=== PATIENT | male | born 1980 | race Caucasian/White ===

== ENCOUNTER 2018-08-17 18:23 | Emergency (ER) | payer SELFPAY ==
[~2018-08-17] VITALS: Ht 182.9 cm; Wt 79.4 kg
[2018-08-17 18:35] VITALS: BP 143/84
--- NOTE | 2018-08-17 18:41 | NUR ---
PT AMBULATES TO [facility] W/ STEADY GAIT AND VSS TO WAIT FOR AN AVAILABLE BED
--- NOTE | 2018-08-17 18:55 | NUR ---
PATIENT AMBULATED TO ER BED 3.
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
[2018-08-17] MEDS ORDERED: MECLIZINE 25 MG TAB PO ONE (19:30)
[2018-08-17] MEDS ORDERED: ONDANSETRON 4 MG ODT PO ONE (19:30)
[2018-08-17 19:51] LABS: BASOPHILS % (AUTO) 0.6 % (0.0-2.0); EOSINOPHILS # (AUTO) 0.1 K/uL (0-0.4); EOSINOPHILS % (AUTO) 1.4 % (0.0-4.0); HEMATOCRIT 43.6 % (36-52); LYMPHOCYTES # (AUTO) 2.2 K/uL (2.0-11.5); LYMPHOCYTES % (AUTO) 32.2 % (20.5-51.1); MEAN CORPUSCULAR HEMOGLOBIN 31 pg (27-31); MEAN CORPUSCULAR HGB CONC 34 g/dL (33-37); MEAN CORPUSCULAR VOLUME 91.3 fL (80-94); MONOCYTES # (AUTO) 0.5 K/uL (0.8-1.0); MONOCYTES % (AUTO) 7.4 % (1.7-9.3); NEUTROPHILS # (AUTO) 3.9 K/uL (1.8-7.7); NEUTROPHILS % (AUTO) 58.4 % (42.2-75.2); PLATELET COUNT (AUTO) 257 K/uL (140-450); RED BLOOD CELL COUNT(AUTO) 4.78 MIL/uL (4.20-6.10); RED CELL DISTRIBUTION WIDTH 12.5 % (11.6-13.7); WHITE BLOOD COUNT (AUTO) 6.8 K/uL (4.8-10.8)
--- NOTE | 2018-08-17 20:14 | NUR ---
PT GOING TO CT
[2018-08-17 20:37] LABS: ALBUMIN 3.7 g/dL (3.4-5.0); CARBON DIOXIDE 30.9 mmol/L (21-32); TOTAL BILIRUBIN 0.5 mg/dL (0.0-1.0)
[2018-08-17 20:42] LABS: CREATINE KINASE MB 0.5 ng/mL (0-3.6)
[2018-08-17 21:06] LABS: ANION GAP 9.3 (8-16); POTASSIUM 4.2 mmol/L (3.5-5.1)
--- NOTE | 2018-08-17 21:21 | NUR ---
Dr. Valle evaluating patient at bedside.
--- NOTE | 2018-08-17 21:56 | NUR ---
PT SITTING UP IN BED, VITALS STABLE.
[2018-08-17 22:12] LABS: BARBITURATE, URINE NEG. ng/ml (NEG <=200); BENZODIAZEPINE, URINE NEG. ng/mL (NEG <=200); CANNABINOID, URINE NEG. ng/mL (NEG <=50); COCAINE, URINE NEG. ng/mL (NEG <=300); OPIATE, URINE NEG. ng/mL (NEG <=2000); PHENCYCLIDINE SCREEN,URINE NEG. ng/mL (NEG <=25)
[2018-08-18] VITALS: BP 116/75
--- NOTE | 2018-08-18 00:02 | NUR ---
Patient discharged with v/s stable. Written and verbal after care instructions given and explained. Patient alert, oriented and verbalized understanding of instructions. Ambulatory with steady gait. All questions addressed prior to discharge. ID band removed. Patient advised to follow up with PMD. Rx of MECLIZINE, ZOFRAN AND ASPIRIN WAS given. Patient educated on indication of medication including possible reaction and side effects. Opportunity to ask questions provided and answered.
== END 2018-08-18 00:02 | disposition home or self-care (01) ==
LOC: MED 18:23
DX: R42 Dizziness and giddiness (principal); R11.0 Nausea; J45.909 Unspecified asthma, uncomplicated
CPT/HCPCS: 36415; 70450; 80053; 80305; 82550; 82553; 84484; 85025; 93005; 99284; J8597; Q0162

== ENCOUNTER 2021-01-01 16:46 | Emergency (ER) | payer SELFPAY ==
[~2021-01-01] VITALS: Ht 185.4 cm; Wt 108.9 kg
[2021-01-01 16:50] VITALS: BP 136/91
--- NOTE | 2021-01-01 17:01 | NUR ---
PT AMB TO BED 2.
--- NOTE | 2021-01-01 17:20 | NUR ---
40 YEAR OLD MALE COMPLAINS OF COUHG, SORE THROAT, AND HEADACHE X 5 DAYS. PT AOX4, BREATHING EVEN AND UNLABORED, SKIN WARM AND DRY. BED IN LOWEST POSITION, LOCKED, BED RAIL UPX1. PMH - DENIES ALLERGIES - NKA
[2021-01-01] MEDS ORDERED: IBUP-2213 PO (17:46)
[2021-01-01] MEDS ORDERED: AMOX-1000 PO (17:46)
[2021-01-01] MEDS ORDERED: BENZ1LOZ98 PO (17:46)
[2021-01-01 17:53] VITALS: BP 136/91
--- NOTE | 2021-01-01 17:53 | NUR ---
Patient discharged with v/s stable. Written and verbal after care instructions about pharyngitis given and explained. Patient alert, oriented and verbalized understanding of instructions. Ambulatory with steady gait. All questions addressed prior to discharge. ID band removed. Patient advised to follow up with PMD. Rx of augmentin, cepacol, ibuprofen given. Patient educated on indication of medication including possible reaction and side effects. Opportunity to ask questions provided and answered.
== END 2021-01-01 17:53 | disposition home or self-care (01) ==
LOC: MED 16:46
DX: J02.9 Acute pharyngitis, unspecified (principal)
CPT/HCPCS: 99283

== ENCOUNTER 2022-10-13 13:50 | Emergency (ER) | payer OTHER ==
[~2022-10-13] VITALS: Ht 185.4 cm; Wt 113.4 kg
[~2022-10-13 13:50] MED LIST: AMOX-1000 PO; BENZ-300 PO; IBUP-2213 PO
[2022-10-13 13:59] VITALS: BP 149/99
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
[2022-10-13] MEDS ORDERED: IBUP-2218 PO (15:45)
--- NOTE | 2022-10-13 16:16 | NUR ---
Patient discharged with v/s stable. Written and verbal after care instructions given and explained. Patient verbalized understanding. Ambulatory with steady gait. All questions addressed prior to discharge. Advised to follow up with PMD.
== END 2022-10-13 16:15 | disposition home or self-care (01) ==
LOC: MED 13:50
DX: S92.252A Displaced fracture of navicular [scaphoid] of left foot, initial encounter for closed fracture (principal); V49.88XA Car occupant (driver) (passenger) injured in other specified transport accidents, initial encounter; Y93.89 Activity, other specified; Y92.89 Other specified places as the place of occurrence of the external cause; Y99.8 Other external cause status
CPT/HCPCS: 29515; 73610; 73630; 99284